=== PATIENT | male | born 1950 | race Caucasian/White ===

== ENCOUNTER → 2017-02-27 | Outpatient (CLI) | payer BC | LOC: FIMAGING 07:28 | PROVIDERS: ATTEND Internal Medicine Endocrinology, Diabetes & Metabolism | DX: E04.2 Nontoxic multinodular goiter (principal) | CPT/HCPCS: A9516 ==

== ENCOUNTER → 2017-03-21 | Outpatient (CLI) | payer BC | LOC: FIMAGING 12:17 | PROVIDERS: ATTEND Internal Medicine Endocrinology, Diabetes & Metabolism | PROC: CW7 Nuclear Medicine, Anatomical Regions, Systemic Nuclear Medicine Therapy (ICD-10-PCS; principal; 2017-03-21) | DX: E05.81 Other thyrotoxicosis with thyrotoxic crisis or storm (principal) | CPT/HCPCS: 79005; A9517 ==

== ENCOUNTER 2017-04-01 15:37 | Emergency (ER) | payer BC ==
[2017-04-01 15:50] VITALS: TEMP 98.2
--- NOTE | 2017-04-01 15:54 | EDPHY ---
H & P Stated Complaint: radiation on thyroid 1 week ago/developed cough post/getting worse Time Seen by Provider: 04/01/17 15:54 - Personal History Current Tetanus/Diphtheria Vaccine: Yes - Medical/Surgical History Hx Asthma: No Hx Chronic Respiratory Disease: No Hx Diabetes: No Hx Cardiac Disease: No Hx Renal Disease: Yes Hx Cirrhosis: No Hx Alcoholism: No Hx HIV/AIDS: No Hx Splenectomy or Spleen Trauma: No Other PMH: kidney transplant 2012/thyroid nodules - Social History Smoking Status: Former smoker Constitutional: Initial Vital Signs Temperature (C) 36.8 C 04/01/17 15:47 Heart Rate 86 04/01/17 15:47 Respiratory Rate 20 04/01/17 15:47 Blood Pressure 150/93 H 04/01/17 15:47 O2 Sat (%) 93 04/01/17 15:47 O2 Delivery Mode Room Air Allergies/Adverse Reactions: erythromycin base [Erythromycin Base] Allergy (Intermediate, Verified 09/12/16 15:17) NAUSEA/ STOMACH CRAMPS grapefruit [Grapefruit] Allergy (Unknown, Verified 09/12/16 15:17) AVOIDS RT KIDNEY Penicillins Allergy (Unknown, Verified 09/12/16 15:17) AVOIDS BOTH PARENTS ANAPHYLAXIS STAR FRUIT Allergy (Unknown, Uncoded 08/01/13 16:02) AVOIDS RT KIDNEY Home Medications: Medication Instructions Recorded Calcitriol [Calcitriol (*)] 0.25 mcg PO Q2D 08/01/13 Mycophenolate Sodium [Myfortic] 360 mg PO BID 08/01/13 Tacrolimus [Prograf] 1.5 mg PO Q12H 08/01/13 Acetaminophen/Diphenhydramine 2 tab PO HS PRN 03/07/15 [Acetaminophen-Diphenhyd 500-25] Aspirin [Aspirin 81mg (*)] 81 mg PO HS 03/07/15 Cholecalciferol Vit D3 [Vitamin D3 1,000 units PO HS 03/07/15 (*)] Doxycycline Hyclate 40 mg PO HS 03/07/15 Herbals/Supplements -Info Only 1 tab PO DAILY 03/07/15 Lisinopril [Zestril 5 mg (*)] 5 mg PO HS 03/07/15 Metoprolol Succinate Xr [Toprol Xl 25 mg PO HS 03/07/15 25 mg (*)] Multivitamins [Multivitamin (*)] 1 tab PO DAILY 03/07/15 predniSONE 5 mg PO DAILY 03/07/15 Albuterol [Proventil Inhaler] 1 - 2 puffs IH Q4 #1 mdi 04/01/17 HYDROcodone/HOMATROPINE HYCODA 1 tsp PO Q4-6PRN PRN #120 ml 04/01/17 [Hycodan Syrup (RX)] levOFLOXACIN [levAQUIN 750 MG (RX)] 750 mg PO DAILY #10 tab 04/01/17 Medical Decision Making - Diagnostics Imaging Results: Imaging Impressions Chest X-Ray 04/01/17 16:01 Impression: Mild interstitial prominence and mild peribronchial wall thickening. This could represent a viral or atypical pneumonia. Drug reaction could be considered. Congestive heart failure unlikely with a normal heart size and pulmonary vascularity. Results called and discussed with Mo Harris MD on April 01, 2017 at 1634 hours. Imaging: I viewed and interpreted images myself ED Course/Re-evaluation: CHIEF COMPLAINT: Cough HISTORY OF PRESENT ILLNESS: This patient is an immunocompromised 66 year old male presenting today with cough progressing over the last week. One week ago, he had radiation therapy for thyroid nodules. Around that time, he developed a cough and visited urgent care. At that time his lungs were clear. Since then, his cough has gotten progressively worse. His , a retired nurse, listened to his lungs today and encouraged him to seek care. He is currently taking anti-rejection medication post kidney transplant five years ago in May,. He is taking Prednisone daily. Today, he reports productive cough and wheezing. He denies fever, chills , nausea, vomiting, or other associated symptoms. REVIEW OF SYSTEMS: A 10 point review of systems was performed and is negative with the exception of the elements mentioned in the history of present illness. PHYSICAL EXAM: HR, BP, O2 Sat, RR. Temp noted General Appearance: Alert, well hydrated, appropriate, and non-toxic appearing. Head: Atraumatic without scalp tenderness or obvious injury Eyes: Pupils equal, round, reactive to light and accommodation, EOMI, no trauma , no injection. Ears: Clear bilaterally, no perforation, normal landmarks Nose: Atraumatic, no rhinorrhea, clear. Throat: Mild erythema. No exudates, no lesions, normal tonsils, mucus membranes moist. Neck: Supple, nontender, no lymphadenopathy. Respiratory: Expiratory wheezes, coarse rhonchi in all bonner. No retractions, no distress, no wheezes, and no accessory muscle use. Cardiovascular: Regular rate and rhythm, no murmurs, rubs, or gallops. Good capillary refill all extremities. Gastrointestinal: Abdomen is soft, nontender, non-distended, no masses, no rebound, no guarding, no peritoneal signs. Musculoskeletal: Normal active ROM of all extremities, atraumatic. Neurological: Alert, appropriate, and interactive. Non-focal neuro exam. Skin: No rashes, good turgor, no nodules on palpation. Past medical history: Kidney transplant. Rosacea. Past surgical history: Kidney transplant Family history: Noncontributory Social history: . DIFFERENTIAL DIAGNOSIS: The differential diagnosis for the patient's shortness of breath and hypoxemia included but was not limited to pneumonitis, pneumonia, bronchitis, congestive heart failure, and pulmonary embolus. MEDICAL DECISION MAKING: This patient is an immunocompromised 66 year old male presenting with a one week history of cough and shortness of breath. He received radiation therapy to his thyroid for benign nodules one week ago but the cough is likely unrelated. Minimal pharyngeal erythema. He has expiratory wheezes, coarse rhonchi in all bonner, and a productive cough. He is not systemically ill. Plan to order chest x-ray to assess acute processes. Will administer DuoNeb treatment to improve his symptoms. Consulted with Dr. Saucedo regarding chest x-ray. Shows diffuse interstitial pattern rather than obvious bronchitis or pneumonia. Possible atypical pneumonia vs pneumonitis from one of his anti-rejection medications though this is unlikely, since he has been on the same one for several years. Plan to treat with Levaquin to cover atypical bacteria. He is already on steroids so I will not add any additional steroids. He has been instructed to follow up with his primary care physician on Sunday. His oxygen saturation is adequate here on room air. 16:43 Reassessed patient. Discussed differential including pneumonitis. The patient is feeling better following DuoNeb treatment. He will be discharged home in good condition with prescriptions for Levaquin, Albuterol, and Hycodan. Follow up instructions and return precautions discussed. The patient is comfortable with this plan. - Data Points Medications Given: Discontinued Medications Albuterol/Ipratropium (Duoneb) 3 ml IH EDNOW ONE Stop: 04/01/17 16:02 Last Admin: 04/01/17 16:05 Dose: 3 ml Departure - Departure Disposition: Home, Routine, Self-Care Clinical Impression: Pneumonitis Condition: Good Instructions: Albuterol (By breathing), Levofloxacin (By mouth), Pneumonitis ( ED), Pneumonia (ED) Additional Instructions: 1. Take your Levaquin as prescribed. It is important to finish the entire course of antibiotics. This medication can cause tendon rupture, so avoid strenuous activity while taking it. 2. Use your Albuterol inhaler as prescribed for shortness of breath. 3. Take Hycodan as prescribed for cough suppression. 4. Follow up with your primary care provider on Sunday. 5. Return to the Emergency Department for worsening shortness of breath, fever, chills, nausea, or other worsening of condition. Referrals: Shyanne Cross MD [Primary Care Provider] - As per Instructions Prescriptions: Albuterol [Proventil Inhaler] 1 - 2 puffs IH Q4 #1 mdi HYDROcodone/HOMATROPINE HYCODA [Hycodan Syrup (RX)] 1 tsp PO Q4-6PRN PRN #120 ml PRN Reason: Cough, Moderate levOFLOXACIN [levAQUIN 750 MG (RX)] 750 mg PO DAILY #10 tab Report Scribed for: Mo Harris Report Scribed by: Mel Allen Date of Report: 04/01/17 Time of Report: 16:15
[2017-04-01] MEDS ORDERED: IPRATROPIUM/ALBUTEROL 3 ML DEYVIAL IH ONE (16:01)
[2017-04-01] MEDS ORDERED: IPRATROPIUM/ALBUTEROL 3 ML DEYVIAL ONE (16:01)
[2017-04-01 16:55] VITALS: BP 173/100; PULSE 90; RESP 16; O2SAT 92
== END 2017-04-01 16:56 | disposition home or self-care (01) ==
DX: J18.9 Pneumonia, unspecified organism (principal); Z79.82 Long term (current) use of aspirin; Z87.891 Personal history of nicotine dependence

== ENCOUNTER → 2018-10-22 | Outpatient (CLI) | payer OTHER, BC | LOC: FCPNEURO 21:00 | PROVIDERS: ATTEND Psychiatry & Neurology Sleep Medicine | DX: G47.33 Obstructive sleep apnea (adult) (pediatric) (principal); G47.39 Other sleep apnea ==

== ENCOUNTER → 2018-11-05 | Outpatient (CLI) | payer OTHER, BC | LOC: FCPNEURO 21:00 | PROVIDERS: ATTEND Psychiatry & Neurology Sleep Medicine | DX: G47.30 Sleep apnea, unspecified (principal) ==

== ENCOUNTER 2018-11-07 02:40 | Emergency (ER) | payer OTHER, BC ==
[2018-11-07] MEDS ORDERED: NS 1,000 ML IV ONE ×2 (02:43→03:41)
[2018-11-07 02:52] LABS: PLATELET COUNT 186 10^3/uL (150-400)
--- NOTE | 2018-11-07 03:45 | EDPHY ---
H & P Stated Complaint: SYNCOPAL EPISODE, FALL, LAC TO HEAD/ AFTER 2 EPISODES EMESIS Time Seen by Provider: 11/07/18 02:42 HPI/ROS: HPI The patient presents with syncope, head injury, vomiting. Last night the patient had 1 beer which is unusual for him. He went to bed feeling fine and awoke to use the bathroom about 1 hr ago. He noticed that he had cramping lower abdominal pain which was intermittent. He felt nauseated. He vomited once. He then felt dizzy and lost consciousness. He was able to get up and began to walk and then lost consciousness a 2nd time. His who is a nurse noticed that he was oriented and alert though did hit his head on the floor when he fell. He does not have a headache currently. He does not have any chest pain, shortness of breath, palpitations.. REVIEW OF SYSTEMS 10 systems were reviewed and negative with the exception of the elements mentioned in the history of present illness. 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, on immunosuppressive therapy, hypertension Soc Hx: Here with his who is a nurse PHYSICAL General Appearance: Alert, no distress Head: There is an S shaped superficial laceration to his left posterior parietal region Eyes: Pupils equal and round no pallor or injection ENT, Mouth: Mucous membranes moist Respiratory: There are no retractions, lungs are clear to auscultation Cardiovascular: Regular rate and rhythm Gastrointestinal: Abdomen is soft and non-tender, no masses, bowel sounds normal Neurological: A&O, moves all extremities Skin: Warm and dry, no rashes Musculoskeletal: Neck is supple non tender Extremities: symmetrical, full range of motion Psychiatric: Patient is oriented X 3, there is no agitation Source: Patient, Family, EMS Exam Limitations: No limitations - Personal History Current Tetanus Diphtheria and Acellular Pertussis (TDAP): Yes - Medical/Surgical History Hx Asthma: No Hx Chronic Respiratory Disease: No Hx Diabetes: No Hx Cardiac Disease: No Hx Renal Disease: Yes Hx Cirrhosis: No Hx Alcoholism: No Hx HIV/AIDS: No Hx Splenectomy or Spleen Trauma: No Other PMH: kidney transplant 2011/thyroid nodules [facility] DX, HTN - Social History Smoking Status: Former smoker Constitutional: Initial Vital Signs Temperature (C) 36.9 C 11/07/18 02:40 Heart Rate 73 11/07/18 02:40 Respiratory Rate 16 11/07/18 02:40 Blood Pressure 146/91 H 11/07/18 02:40 O2 Sat (%) 91 L 11/07/18 02:40 O2 Delivery Mode Nasal Cannula O2 (L/minute) 2 Allergies/Adverse Reactions: erythromycin base [Erythromycin Base] Allergy (Intermediate, Verified 09/12/16 15:17) NAUSEA/ STOMACH CRAMPS grapefruit [Grapefruit] Allergy (Unknown, Verified 09/12/16 15:17) AVOIDS RT KIDNEY Penicillins Allergy (Unknown, Verified 09/12/16 15:17) AVOIDS BOTH PARENTS ANAPHYLAXIS STAR FRUIT Allergy (Unknown, Uncoded 08/01/13 16:02) AVOIDS RT KIDNEY Home Medications: Medication Instructions Recorded Calcitriol [Calcitriol (*)] 0.25 mcg PO Q2D 08/01/13 Mycophenolate Sodium [Myfortic] 360 mg PO BID 08/01/13 Tacrolimus [Prograf] 1.5 mg PO Q12H 08/01/13 Acetaminophen/Diphenhydramine 2 tab PO HS PRN 03/07/15 [Acetaminophen-Diphenhyd 500-25] Aspirin [Aspirin 81mg (*)] 81 mg PO HS 03/07/15 Cholecalciferol Vit D3 [Vitamin D3 1,000 units PO HS 03/07/15 (*)] Doxycycline Hyclate 40 mg PO HS 03/07/15 Herbals/Supplements -Info Only 1 tab PO DAILY 03/07/15 Lisinopril [Zestril 5 mg (*)] 5 mg PO HS 03/07/15 Metoprolol Succinate Xr [Toprol Xl 25 mg PO HS 03/07/15 25 mg (*)] Multivitamins [Multivitamin (*)] 1 tab PO DAILY 03/07/15 predniSONE 5 mg PO DAILY 03/07/15 Albuterol [Proventil Inhaler] 1 - 2 puffs IH Q4 #1 mdi 04/01/17 Medical Decision Making - Diagnostics EKG Interpretation: EKG: Complete interpretation has been separately recorded in the [facility] archive. Summary impression: Normal sinus rhythm Imaging Results: CT head without contrast is unremarkable, discussed with Dr. Gabriel of Radiology. Imaging: Discussed imaging studies w/ call center dispatcher Radiologist, I viewed and interpreted images myself Differential Diagnosis: 68-year-old man with past medical history of Juancarlos's granulomatosis status post renal transplant on immunosuppressive therapy, also hypertension presents from home brought in by ambulance after syncopal episode associated with nausea , vomiting, head injury. Here, vital signs are normal, he does have a scalp laceration which is superficial and does not require repair. Abdominal exam is benign without any tenderness. In the emergency department, patient was started on IV fluids. EKG was normal. On the gambling monitor he had occasional PVCs without any other signs of arrhythmia. Labs were checked and did reveal BUN of 25 with creatinine of 1.7. Patient reports baseline creatinine of 1.4-1.5. This could signify dehydration. He was given a 2nd L of fluid. Repeat creatinine was 1.4. Of note he did have slightly elevated total bilirubin and AST. On repeat exam he still does not have any abdominal tenderness. He was able to walk around the ER without any difficulty. He was able to drink fluids without any vomiting and was feeling much better. I explained to him that he will need to have his liver tests recheck in 1-2 weeks to make sure there trending downward. I have considered cholecystitis and biliary colic as cause of his vomiting given these lab tests but with no ongoing symptoms, I do not feel this requires further workup. He feels comfortable being discharged with his . - Data Points Laboratory Results: Laboratory Results 11/07/18 02:40 11/07/18 04:15 11/07/18 11/07/18 11/07/18 04:15 02:50 02:40 WBC RBC Hgb Hct MCV MCH MCHC RDW Plt Count MPV Neut % (Auto) Lymph % (Auto) Grant % (Auto) Eos % (Auto) Baso % (Auto) Nucleat RBC Rel Count Absolute Neuts (auto) Absolute Lymphs (auto) Absolute Monos (auto) Absolute Eos (auto) Absolute Basos (auto) Absolute Nucleated RBC Immature Gran % Immature Gran # Sodium 141 mEq/L mEq/L 140 mEq/L mEq/L (135-145) (135-145) Potassium 3.7 mEq/L mEq/L 4.2 mEq/L mEq/L (3.5-5.2) (3.5-5.2) Chloride 110 mEq/L mEq/L 103 mEq/L mEq/L (97-110) (97-110) Carbon Dioxide 25 mEq/l mEq/l 29 mEq/l mEq/l (22-31) (22-31) Anion Gap 6 mEq/L mEq/L 8 mEq/L mEq/L (6-14) (6-14) BUN 22 mg/dL mg/dL 25 mg/dL H mg/dL (7-23) (7-23) Creatinine 1.4 mg/dL H mg/dL 1.7 mg/dL H mg/dL (0.7-1.3) (0.7-1.3) Estimated GFR 51 41 Glucose 104 mg/dL H mg/dL 97 mg/dL mg/dL (70-100) (70-100) Calcium 7.7 mg/dL L mg/dL 9.3 mg/dL mg/dL (8.5-10.4) (8.5-10.4) Total Bilirubin 1.7 mg/dL H mg/dL 1.6 mg/dL H mg/dL (0.1-1.4) (0.1-1.4) Conjugated Bilirubin 0.7 mg/dL H mg/dL (0.0-0.5) Unconjugated Bilirubin 0.9 mg/dL mg/dL (0.0-1.1) AST 92 IU/L H IU/L 86 IU/L H IU/L (17-59) (17-59) ALT 68 IU/L IU/L 58 IU/L IU/L (21-72) (21-72) Alkaline Phosphatase 79 IU/L IU/L 90 IU/L IU/L (38-126) (38-126) POC Troponin I 0.01 ng/mL ng/mL (0.00-0.08) Total Protein 5.4 g/dL L g/dL 6.5 g/dL g/dL (6.3-8.2) (6.3-8.2) Albumin 2.8 g/dL L g/dL 3.8 g/dL g/dL (3.5-5.0) (3.5-5.0) 11/07/18 02:40 WBC 12.22 10^3/uL H 10^3/uL (3.80-9.50) RBC 6.18 10^6/uL 10^6/uL (4.40-6.38) Hgb 16.6 g/dL g/dL (13.7-17.5) Hct 52.7 % H % (40.0-51.0) MCV 85.3 fL fL (81.5-99.8) MCH 26.9 pg L pg (27.9-34.1) MCHC 31.5 g/dL L g/dL (32.4-36.7) RDW 13.6 % % (11.5-15.2) Plt Count 186 10^3/uL 10^3/uL (150-400) MPV 9.7 fL fL (8.7-11.7) Neut % (Auto) 56.6 % % (39.3-74.2) Lymph % (Auto) 31.6 % % (15.0-45.0) Grant % (Auto) 9.2 % % (4.5-13.0) Eos % (Auto) 1.5 % % (0.6-7.6) Baso % (Auto) 0.3 % % (0.3-1.7) Nucleat RBC Rel Count 0.0 % % (0.0-0.2) Absolute Neuts (auto) 6.91 10^3/uL H 10^3/uL (1.70-6.50) Absolute Lymphs (auto) 3.86 10^3/uL H 10^3/uL (1.00-3.00) Absolute Monos (auto) 1.13 10^3/uL H 10^3/uL (0.30-0.80) Absolute Eos (auto) 0.18 10^3/uL 10^3/uL (0.03-0.40) Absolute Basos (auto) 0.04 10^3/uL 10^3/uL (0.02-0.10) Absolute Nucleated RBC 0.00 10^3/uL 10^3/uL (0-0.01) Immature Gran % 0.8 % % (0.0-1.1) Immature Gran # 0.10 10^3/uL 10^3/uL (0.00-0.10) Sodium Potassium Chloride Carbon Dioxide Anion Gap BUN Creatinine Estimated GFR Glucose Calcium Total Bilirubin Conjugated Bilirubin Unconjugated Bilirubin AST ALT Alkaline Phosphatase POC Troponin I Total Protein Albumin Medications Given: Discontinued Medications Sodium Chloride (Ns) 1,000 mls @ 0 mls/hr IV EDNOW ONE; Wide Open PRN Reason: Protocol Stop: 11/07/18 02:44 Last Admin: 11/07/18 02:48 Dose: 1,000 mls Sodium Chloride (Ns) 1,000 mls @ 0 mls/hr IV EDNOW ONE; Wide Open PRN Reason: Protocol Stop: 11/07/18 03:42 Last Admin: 11/07/18 03:45 Dose: 1,000 mls Point of Care Test Results: Chemistry 11/07/18 02:50 POC Troponin I 0.01 ng/mL ng/mL (0.00-0.08) Departure - Departure Disposition: Home, Routine, Self-Care Clinical Impression: Elevated liver enzymes Syncope Qualifiers: Syncope type: unspecified Qualified Code(s): R55 - Syncope and collapse Vomiting Qualifiers: Vomiting type: unspecified Vomiting Intractability: non-intractable Nausea presence: with nausea Qualified Code(s): R11.2 - Nausea with vomiting, unspecified Scalp laceration Qualifiers: Encounter type: initial encounter Qualified Code(s): S01.01XA - Laceration without foreign body of scalp, initial encounter Condition: Good Instructions: Syncope (ED) Additional Instructions: Please make sure to get plenty of rest. When you get up from bed make sure to 1st sit at the edge of the bed for a few minutes until your feeling stable. Make sure to drink fluids. When we tested your lab tests today your liver tests were slightly elevated. Because of this, if you develop pain in her right upper abdomen, fever, recurrent vomiting, you need to return to the emergency department. Otherwise please follow-up with your regular doctor in 1-2 weeks for repeat liver tests. Referrals: John Paul Hardy MD [[facility] Primary Care Provider] - As per Instructions
--- NOTE | 2018-11-07 05:56 | CPEKG ---
Test Reason : OPEN Blood Pressure : / mmHG Vent. Rate : 069 BPM Atrial Rate : 070 BPM P-R Int : 195 ms QRS Dur : 080 ms QT Int : 372 ms P-R-T Axes : 046 013 055 degrees QTc Int : 399 ms Sinus rhythm Confirmed by Freida Betancourt ([id number]) on 11/07/2018 5:56:23 AM Referred By: Confirmed By:Freida Betancourt
[2018-11-07 06:00] VITALS: BP 120/80
== END 2018-11-07 05:59 | disposition home or self-care (01) ==
LOC: EDUNIT#
DX: R55 Syncope and collapse (principal); R11.10 Vomiting, unspecified; R74.8 Abnormal levels of other serum enzymes; S01.01XA Laceration without foreign body of scalp, initial encounter; D84.9 Immunodeficiency, unspecified; M31.30 Wegener's granulomatosis without renal involvement; I10 Essential (primary) hypertension; E86.9 Volume depletion, unspecified; Z87.891 Personal history of nicotine dependence
CPT/HCPCS: 84484-ER

== ENCOUNTER → 2018-11-08 | Outpatient (CLI) | payer OTHER, BC | LOC: BMCIMAGING 13:54 | PROVIDERS: ATTEND Family Medicine | DX: S82.55XA Nondisplaced fracture of medial malleolus of left tibia, initial encounter for closed fracture (principal) ==